=== PATIENT | male | born 1990 | race African-American/Black ===

== ENCOUNTER 2016-05-06 22:54 | Emergency (ER) | payer BC ==
[~2016-05-06] VITALS: Ht 170.2 cm; Wt 56.7 kg
[2016-05-06 23:47] VITALS: BP 119/69
[2016-05-07 00:32] LABS: BILIRUBIN,URINE SMALL (NEG); GLUCOSE,URINE NEGATIVE (NEG); NITRITE,URINE NEGATIVE (NEG); PROTEIN,URINE 30 mg/dL (NEG-TRACE)
[2016-05-07 00:39] LABS: RBC,URINE OCC /HPF (0-2); WBC,URINE TNTC /HPF (0-4)
[2016-05-07 00:40] LABS: BACTERIA,URINE FEW /HPF (0-FEW); SQUAMOUS EPITHELIAL CELL,UR OCC /LPF
[2016-05-07] MEDS ORDERED: DOXY100C2 PO (01:11)
--- NOTE | 2016-05-07 01:12 | PHYS DOC ---
Past Medical History Past Medical History: No Pertinent History Past Surgical History: No Surgical History Alcohol Use: None Drug Use: Marijuana Adult General Chief Complaint Chief Complaint: PAIN ON URINATION [facility] HPI Patient is a 25 year old male who presents with complaint of dysuria and abnormal penile discharge for 5 days. The patient states that he is sexually active with multiple partners. Patient states he started having greenish penile discharge and has been having burning whenever he urinates. Patient denies any associated fevers, vomiting, or abdominal pain currently. He denies any significant past medical history. Review of Systems Review of Systems Constitutional: Denies fever or chills [] Respiratory: Denies cough or shortness of breath [] Cardiovascular: No additional information not addressed in HPI [] GI: Denies abdominal pain, nausea, vomiting, bloody stools or diarrhea [] : Penile discharge, dysuria [] Musculoskeletal: Denies back pain or joint pain [] Integument: Denies rash or skin lesions [] Neurologic: Denies headache, focal weakness or sensory changes [] Current Medications Current Medications Current Medications Medications (Trade) Dose Ordered Sig/Adeline Start Time Stop Time Status Last Admin Dose Admin Ceftriaxone Sodium (Rocephin Im) 250 mg 1X ONCE 05/07/16 01:15 05/07/16 01:16 UNV Doxycycline Hyclate (Vibra-Tab) 100 mg 1X ONCE 05/07/16 01:15 05/07/16 01:16 UNV Allergies Allergies Allergies Coded Allergies Type Severity Reaction Last Updated Verified No Known Drug Allergies 05/06/16 No Physical Exam Physical Exam Constitutional: Well developed, well nourished, no acute distress, non-toxic appearance. [] HENT: Normocephalic, atraumatic, bilateral external ears normal, oropharynx moist, no oral exudates, nose normal. [] Cardiovascular:Heart rate regular rhythm, no murmur [] Lungs & Thorax: Bilateral breath sounds clear to auscultation [] Abdomen: Bowel sounds normal, soft, no tenderness, no masses, no pulsatile masses. . : Circumcised, scant amount of greenish discharge at urethral meatus, no inguinal tenderness or masses [] Skin: Warm, dry, no erythema, no rash. [] Back: No tenderness, no CVA tenderness. [] Extremities: No tenderness, no cyanosis, no clubbing, ROM intact, no edema. [] Neurologic: Alert and oriented X 3, normal motor function, normal sensory function, no focal deficits noted. [] Current Patient Data Vital Signs Vital Signs Date Time Temp Pulse Resp B/P Pulse Ox O2 Delivery O2 Flow Rate FiO2 05/06/16 23:47 99.1 54 20 99 Room Air 99.1 Lab Values Laboratory Tests Test 05/07/16 00:04 Urine Collection Type Unknown Urine Color Marya Urine Clarity Cloudy Urine pH 6.0 Urine Specific [place] >=1.030 Urine Protein 30mg/dL (NEG-TRACE) Urine Glucose (UA) Negativemg/dL (NEG) Urine Ketones (Stick) Tracemg/dL (NEG) Urine Blood Small (NEG) Urine Nitrite Negative (NEG) Urine Bilirubin Small (NEG) Urine Urobilinogen Dipstick 1.0mg/dL (0.2 mg/dL) Urine Leukocyte Esterase Large (NEG) Urine RBC Occ/HPF (0-2) Urine WBC Tntc/HPF (0-4) Urine Squamous Epithelial Cells Occ/LPF Urine Bacteria Few/HPF (0-FEW) Urine Mucus Marked/LPF EKG EKG Not performed [] Radiology/Procedures Radiology/Procedures Not performed [] Course & Med Decision Making Course & Med Decision Making Pertinent Labs and Imaging studies reviewed. (See chart for details) Patient's UA shows evidence of active infection. I am suspicious the patient has chlamydial infection. The patient will be treated with IM Rocephin for treatment of possible coinfection with gonorrhea and patient will continue on 10 day course of doxycycline for treatment of suspected chlamydia. Advised patient to inform any sexual partners that they will need to be evaluated for need for treatment of possible sexual transmitted infection. Advised patient to return emergency department for any worsening symptoms. Patient voiced understanding and in agreement with treatment plan. Dragon Disclaimer Dragon Disclaimer This electronic medical record was generated, in whole or in part, using a voice recognition dictation system. Departure Departure Impression: Primary Impression: Sexually transmitted infection Disposition: 01 HOME, SELF-CARE Condition: IMPROVED Referrals: NO PCP (PCP) Patient Instructions: Sexually Transmitted Disease Additional Instructions: You were treated with Rocephin and doxycycline in the emergency department for suspicion of sexually transmitted infection. You will need to complete your prescription for doxycycline as written at your visit today. He will also need to inform any sexual partners that they will need evaluation and treatment for possible sexually transmitted infection. Return to the emergency department for any worsening symptoms. Scripts Doxycycline Hyclate 100 Mg Capsule1 Cap PO BID #[id number] CAP Prov:WILL DESIR MD 05/07/16 WILL DESIR MD May 07, 2016 01:12
[2016-05-07] MEDS ORDERED: DOXYCYCLINE HYCLATE 100 MG TABLET PO ONE (01:30)
[2016-05-07] MEDS ORDERED: CEFTRIAXONE IM 250 MG VIAL. IM ONE (01:30)
--- NOTE | 2016-05-09 15:32 | VNOTE ---
CALL BACK NOTE CALL BACK Microbiology 05/07/16 Urine Culture - Final, Complete 05/07/16 Urine Culture Result 1 (GURWINDER) - Final, Complete Received patient's GC and chlamydia amplification test results from his visit on the of this month. He was positive for both chlamydia and gonorrhea. Review the patient's chart indicates the patient received 250 mg Rocephin IM and 800 mg tablet of doxycycline in the emergency room. He also received a prescription for 10 days of doxycycline 100 mg by mouth twice a day for 10 days. Attempted contact patient's registered phone number [phone]. This immediately went to [email or web address]. Message was left for patient to contact the emergency department for information regarding his test results. MINNA HAWLEY May 09, 2016 15:32
== END 2016-05-07 01:39 | disposition home or self-care (01) ==
LOC: ER 22:54
DX: A64 Unspecified sexually transmitted disease (principal); F12.10 Cannabis abuse, uncomplicated
CPT/HCPCS: 81001; 87086; 87491; 87591; 96372; 99284; J0696